=== PATIENT | female | born 1975 | race Two or more races ===

== ENCOUNTER 2016-10-22 22:42 | Emergency (ER) | payer OTHER ==
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
[2016-10-23] MEDS ORDERED: PROPARACAINE 0.5% 15 ML OPHT DROP ONE (00:25)
[2016-10-23] MEDS ORDERED: FLUORESCEIN SODIUM 1 MG STRIP OP ONE (00:26)
[2016-10-23] MEDS ORDERED: IBUPROFEN 600 MG TAB PO ONE (00:56)
[2016-10-23 00:59] VITALS: BP 132/82; PULSE 84; RESP 17; TEMP 97.9; O2SAT 96
== END 2016-10-23 01:03 | disposition home or self-care (01) ==
DX: S60.222A Contusion of left hand, initial encounter (principal); V49.50XA Passenger injured in collision with unspecified motor vehicles in traffic accident, initial encounter; Y92.410 Unspecified street and highway as the place of occurrence of the external cause